=== PATIENT | female | born 1955 | race Two or more races ===

== ENCOUNTER 2023-07-14 08:24 | Inpatient (IN) | payer MEDICAID, OTHER ==
[~2023-07-14] VITALS: Ht 154.9 cm; Wt 108.8 kg
[2023-07-14] VITALS (12 sets, daily range): BP systolic 144; BP diastolic 81; PULSE 102–119; RESP 7–22; O2SAT 93–98
[~2023-07-14 08:24] MED LIST: ALBUPOW26 XX; ASPI81CH43 GT; ATEN50TA80 PO; LOSA-534 PO; VERA240C2 PO
[2023-07-14] MEDS: IPRATROPIUM BROM 0.5 MG/2.5ML INH SOL NEB ONE (08:55)
[2023-07-14] MEDS: ALBUTEROL SULF 2.5 MG/0.5ML(0.5%) NEB SOLN NEB ONE (08:55)
[2023-07-14 09:06] LABS: Basophils # (auto) 0.1 10 ^3/uL (0-0.2); Basophils % (auto) 0.8 % (0.0-2.0); Eosinophils # (auto) 0.3 10 ^3/uL (0-0.8); Eosinophils % (auto) 1.9 % (0.0-7.0); Hematocrit 41.3 % (36.0-46.0); Hemoglobin 13.7 g/dL (12.2-16.2); Lymphocytes % (auto) 6.4 % (10.0-50.0); Mean Corpuscular Hemoglobin 28.2 pg (28.0-32.0); Mean Corpuscular Hgb Conc. 33.2 g/dL (32.0-36.0); Monocytes # (auto) 1.9 10 ^3/uL (0-1.3); Monocytes % (auto) 11.7 % (0.0-12.0); Neutrophils # (auto) 12.5 10 ^3/uL (1.6-8.6); Neutrophils % (auto) 79.2 % (37.0-80.0); Red Blood Cells 4.86 10^6/uL (4.0-5.20); Red Cell Distribution Width 14.9 % (11.8-14.3); White Blood Cell 15.8 10^3/uL (4.4-10.8)
[2023-07-14 09:14] LABS: Chloride 106 mmol/L (98-107); Potassium 3.6 mmol/L (3.5-5.1); Sodium 138 mmol/L (136-145)
[2023-07-14 09:15] LABS: Anion Gap 6 (5-15); Calcium 9.2 mg/dL (8.5-10.1); Carbon Dioxide 26 mmol/L (20-30)
[2023-07-14 09:20] LABS: BUN/Creatinine Ratio 6.8 (10.0-20.0); Blood Urea Nitrogen 5 mg/dL (9-23); Glucose 122 mg/dL (74-106)
[2023-07-14] MEDS: methylPREDNISolone SOD SUCC 125 MG/2 ML VL IV ONE (09:46)
[2023-07-14] MEDS: MAGNESIUM SULFATE 1GM/100ML 100 ML IV ONE (09:47)
[2023-07-14 10:43] LABS: Urine Bacteria FEW /hpf (None Seen); Urine Blood Negative /uL (Negative); Urine Protein, UAD Negative (Negative); Urine Specific Gravity 1.007 (1.001-1.035); Urine Urobilinogen Normal (Negative); Urine WBC 4 /hpf (0 - 5)
[2023-07-14 10:45] LABS: Urine Clarity Clear (Clear); Urine Color Yellow (Yellow)
[2023-07-14] MEDS ORDERED: ACETAMINOPHEN 325 MG TAB PO PRN (12:00)
[2023-07-14] MEDS ORDERED: ALBUTEROL SULF 2.5 MG/0.5ML(0.5%) NEB SOLN NEB PRN (12:00)
[2023-07-14 12:23] LABS: Triglycerides 185 mg/dL (< 150)
[2023-07-14 12:24] LABS: LDL Cholesterol 174 mg/dL (< 100)
[2023-07-14 12:25] LABS: Cholesterol 232 mg/dL (< 200); HDL Cholesterol 49 mg/dL (40-59)
[2023-07-14] MEDS: cefTRIAXone 1GM/50ML D5W 50 ML IV ONE (12:56)
[2023-07-14] MEDS: SODIUM CHLORIDE 0.9% 1,000 ML IV SCH (12:56)
[2023-07-14] MEDS: ALBUTEROL SULF 2.5 MG/0.5ML(0.5%) NEB SOLN NEB SCH (13:23)
[2023-07-14] MEDS: IPRATROPIUM BROM 0.5 MG/2.5ML INH SOL NEB SCH (13:23)
[2023-07-14] MEDS: AZITHROMYCIN 500MG/ 250ML 250 ML IV ONE (14:27)
[2023-07-14] MEDS: methylPREDNISolone SOD SUCC 40 MG/ML VL IV SCH (21:56)
[2023-07-15] VITALS (23 sets, daily range): BP systolic 106–135; BP diastolic 61–77; PULSE 77–120; RESP 16–22; TEMP 98.1–98.9; O2SAT 93–100
[2023-07-15 02:28] LABS: Rapid Influenza B Negative (Negative)
[2023-07-15 02:29] LABS: Rapid Influenza A Positive (Negative)
[2023-07-15 03:21] LABS: COVID19 ANTIGEN SOFIA FIA NEGATIVE (NEGATIVE)
[2023-07-15 05:53] LABS: Basophils # (auto) 0 10 ^3/uL (0-0.2); Basophils % (auto) 0.2 % (0.0-2.0); Eosinophils # (auto) 0 10 ^3/uL (0-0.8); Hematocrit 41.2 % (36.0-46.0); Hemoglobin 13.3 g/dL (12.2-16.2); Lymphocytes # (auto) 0.7 10 ^3/uL (0.4-5.4); Lymphocytes % (auto) 4.9 % (10.0-50.0); Mean Corpuscular Hemoglobin 27.6 pg (28.0-32.0); Mean Corpuscular Hgb Conc. 32.4 g/dL (32.0-36.0); Mean Corpuscular Volume 85.1 fL (80.0-100.0); Monocytes # (auto) 0.8 10 ^3/uL (0-1.3); Neutrophils # (auto) 12.2 10 ^3/uL (1.6-8.6); Neutrophils % (auto) 88.9 % (37.0-80.0); Red Blood Cells 4.84 10^6/uL (4.0-5.20); Red Cell Distribution Width 15.1 % (11.8-14.3); White Blood Cell 13.7 10^3/uL (4.4-10.8)
[2023-07-15 06:04] LABS: Alanine Aminotransferase 17 U/L (7-40); Albumin 4.3 g/dL (3.2-4.8); Alkaline Phosphatase 98 U/L (46-116); Anion Gap 7 (5-15); Aspartate Aminotransferase 12 U/L (13-40); BUN/Creatinine Ratio 11.4 (10.0-20.0); Bilirubin, Total 0.2 mg/dL (0.2-1.0); Blood Urea Nitrogen 9 mg/dL (9-23); Calcium 9.7 mg/dL (8.7-10.4); Carbon Dioxide 26 mmol/L (20-30); Chloride 107 mmol/L (98-107); Glucose 179 mg/dL (74-106); Potassium 4.4 mmol/L (3.5-5.1); Sodium 140 mmol/L (136-145); Total Protein 7.2 g/dL (5.7-8.2)
[2023-07-15] MEDS: cefTRIAXone 1GM/50ML D5W 50 ML IV SCH (08:28)
[2023-07-15] MEDS: AZITHROMYCIN 500MG/ 250ML 250 ML IV SCH (10:50)
[2023-07-15] MEDS: ENOXAPARIN SOD 40 MG/0.4 ML SYRINGE SC SCH (10:51)
[2023-07-15] MEDS: ASPirin 81 mg TAB GT SCH (10:51)
[2023-07-15] MEDS: ATENOLOL 25 MG TAB PO SCH (10:52)
[2023-07-15] MEDS: VERAPAMIL HCL 120 mg ER tab PO SCH (10:53)
[2023-07-15] MEDS: LOSARTAN POTASSIUM 50 MG TAB PO SCH (10:53)
[2023-07-16] VITALS (19 sets, daily range): BP systolic 99–131; BP diastolic 49–83; PULSE 70–98; RESP 14–20; TEMP 97.8–98.5; O2SAT 94–100
[2023-07-16] MEDS: methylPREDNISolone SOD SUCC 40 MG/ML VL IV SCH (10:30)
[2023-07-16] MEDS: OSELTAMIVIR 75 MG CAP PO SCH (11:00)
[2023-07-16] MEDS: DOXYCYCLINE 100MG/250ML 250 ML IV SCH (11:15)
[2023-07-16] MEDS: ATORVASTATIN 20 MG TAB PO SCH (21:25)
[2023-07-17] VITALS (23 sets, daily range): BP systolic 102–117; BP diastolic 45–67; PULSE 72–87; RESP 16–22; TEMP 98–98.7; O2SAT 84–100
[2023-07-17 06:37] LABS: Basophils # (auto) 0 10 ^3/uL (0-0.2); Basophils % (auto) 0.1 % (0.0-2.0); Eosinophils # (auto) 0 10 ^3/uL (0-0.8); Eosinophils % (auto) 0.1 % (0.0-7.0); Hematocrit 39.5 % (36.0-46.0); Hemoglobin 12.8 g/dL (12.2-16.2); Lymphocytes # (auto) 1.9 10 ^3/uL (0.4-5.4); Lymphocytes % (auto) 14.4 % (10.0-50.0); Mean Corpuscular Hemoglobin 27.8 pg (28.0-32.0); Mean Corpuscular Hgb Conc. 32.5 g/dL (32.0-36.0); Mean Corpuscular Volume 85.4 fL (80.0-100.0); Monocytes # (auto) 1.5 10 ^3/uL (0-1.3); Monocytes % (auto) 11.5 % (0.0-12.0); Neutrophils # (auto) 9.5 10 ^3/uL (1.6-8.6); Neutrophils % (auto) 73.9 % (37.0-80.0); Red Blood Cells 4.63 10^6/uL (4.0-5.20); Red Cell Distribution Width 15.1 % (11.8-14.3); White Blood Cell 12.9 10^3/uL (4.4-10.8)
[2023-07-17 06:45] LABS: Chloride 104 mmol/L (98-107); Potassium 3.8 mmol/L (3.5-5.1); Sodium 140 mmol/L (136-145)
[2023-07-17 06:46] LABS: Anion Gap 7 (5-15); Calcium 9.5 mg/dL (8.5-10.1); Carbon Dioxide 29 mmol/L (20-30)
[2023-07-17 06:51] LABS: BUN/Creatinine Ratio 14.5 (10.0-20.0); Blood Urea Nitrogen 11 mg/dL (9-23); Glucose 109 mg/dL (74-106)
[2023-07-17] MEDS: LACTULOSE 20Gm/30ML SOLN PO ONE (12:00)
[2023-07-17] MEDS: OSELTAMIVIR 75 MG CAP PO ONE (22:10)
[2023-07-18] VITALS (16 sets, daily range): BP systolic 97–123; BP diastolic 56–89; PULSE 63–84; RESP 18–21; TEMP 36.5; O2SAT 73–100
[2023-07-18 06:26] LABS: Basophils # (auto) 0 10 ^3/uL (0-0.2); Basophils % (auto) 0.1 % (0.0-2.0); Eosinophils # (auto) 0 10 ^3/uL (0-0.8); Hematocrit 40.3 % (36.0-46.0); Hemoglobin 13.1 g/dL (12.2-16.2); Lymphocytes # (auto) 1.5 10 ^3/uL (0.4-5.4); Lymphocytes % (auto) 14.1 % (10.0-50.0); Mean Corpuscular Hemoglobin 27.9 pg (28.0-32.0); Mean Corpuscular Hgb Conc. 32.5 g/dL (32.0-36.0); Mean Corpuscular Volume 85.9 fL (80.0-100.0); Monocytes # (auto) 0.9 10 ^3/uL (0-1.3); Monocytes % (auto) 8.9 % (0.0-12.0); Neutrophils # (auto) 8.1 10 ^3/uL (1.6-8.6); Neutrophils % (auto) 76.9 % (37.0-80.0); Red Blood Cells 4.69 10^6/uL (4.0-5.20); Red Cell Distribution Width 14.6 % (11.8-14.3); White Blood Cell 10.5 10^3/uL (4.4-10.8)
[2023-07-18 07:01] LABS: Anion Gap 4 (5-15); Carbon Dioxide 33 mmol/L (20-30); Chloride 102 mmol/L (98-107); Potassium 4.8 mmol/L (3.5-5.1); Sodium 139 mmol/L (136-145)
[2023-07-18 07:02] LABS: Calcium 9.6 mg/dL (8.5-10.1)
[2023-07-18 07:07] LABS: BUN/Creatinine Ratio 13.5 (10.0-20.0); Blood Urea Nitrogen 10 mg/dL (9-23); Glucose 109 mg/dL (74-106)
[2023-07-18] MEDS ORDERED: OSEL75CA5 PO (11:58)
[2023-07-18] MEDS ORDERED: DOXY1CAP57 PO (11:58)
== END 2023-07-18 17:04 | disposition home or self-care (01) | DRG 141 ==
LOC: ER 08:24 → TELE 12:05 → TELE-EAST 07-15 00:19
PROVIDERS: ADMIT Internal Medicine Pulmonary Disease; ATTEND Emergency Medicine
DX: J45.901 Unspecified asthma with (acute) exacerbation (principal); J96.01 Acute respiratory failure with hypoxia; J10.08 Influenza due to other identified influenza virus with other specified pneumonia; J15.69 Pneumonia due to other Gram-negative bacteria; J15.9 Unspecified bacterial pneumonia; K59.00 Constipation, unspecified; I10 Essential (primary) hypertension; Z20.822 Contact with and (suspected) exposure to COVID-19; E78.5 Hyperlipidemia, unspecified; Z90.710 Acquired absence of both cervix and uterus; Z79.899 Other long term (current) drug therapy; R65.10 Systemic inflammatory response syndrome (SIRS) of non-infectious origin without acute organ dysfunction
CPT/HCPCS: 36415; 71045; 80048; 80053; 80061; 81001; 84443; 84484; 85025; 87070; 87077; 87081; 87186; 87205; 87426; 87804; 93005; 94640; 96365; 96366; 96367; 96375; 99291; G0378; J3490